=== PATIENT | female | born 1965 | race Caucasian/White ===

== ENCOUNTER 2021-05-11 15:18 | Emergency (ER) | payer OTHER ==
[~2021-05-11 15:18] MED LIST: CEFDINIR300 MG PO; CIPRO500 MG PO; CITRATE OF MAG296 ML PO; DONNATAL E16.2 MG/1 PO; FLAGYL500 MG PO; FLEET ENEMA133 ML PR; LACTINEX1 EACH PO; LOPRESSOR100 MG PO; LORTAB 5-325 M1 EACH PO; MACROBID100 MG PO; NYSTATIN100000 UNI SSW; OXY-IR 5MG5 MG PO; PHENERGAN25 M1 PO; PROTONIX 40MG T40 MG PO; PROTONIX40 MG PO; TRAMADOL HCL50 MG PO; VOLTAREN **OUT50 MG PO; ZOFRAN4 MG PO; [UNRECOGNIZED DRUG - REMARK]
[2021-05-11] MEDS ORDERED: BACTRIM DS TAB1 EACH PO (18:05)
[2021-05-11] MEDS ORDERED: DIFLUCAN150 MG PO (18:05)
== END 2021-05-11 18:30 | disposition home or self-care (01) ==
LOC: FER 15:18
DX: S30.1XXA Contusion of abdominal wall, initial encounter (principal); I10 Essential (primary) hypertension; Z88.8 Allergy status to other drugs, medicaments and biological substances; W10.2XXA Fall (on)(from) incline, initial encounter; Y92.009 Unspecified place in unspecified non-institutional (private) residence as the place of occurrence of the external cause
CPT/HCPCS: 93971